=== PATIENT | female | born 1990 | race Caucasian/White ===

== ENCOUNTER 2020-02-18 15:19 | Emergency (ER) | payer MEDICAID, SELFPAY ==
[2020-02-18 15:24] VITALS: BP 116/78; PULSE 96; RESP 18; TEMP 37.2; O2SAT 98; BMI 41.3
--- NOTE | 2020-02-18 15:44 | CTR_ITS ---
PROCEDURE INFORMATION: Exam: CT Abdomen And Pelvis With Contrast Exam date and time: 02/18/2020 3:54 PM Age: 29 years old Clinical indication: Nausea; Abdominal pain; Localized; Left; Prior surgery; Surgery type: Tubal, rectal vaginal fistula, ostomy, hernia; Additional info: Abdominal pain, fever TECHNIQUE: Imaging protocol: Computed tomography of the abdomen and pelvis with intravenous contrast. Radiation optimization: All CT scans at this facility use at least one of these dose optimization techniques: automated exposure control; mA and/or kV adjustment per patient size (includes targeted exams where dose is matched to clinical indication); or iterative reconstruction. Contrast material: OMNI 300; Contrast volume: 95 ml; Contrast route: INTRAVENOUS (IV); COMPARISON: No relevant prior studies available. RADIATION DOSE METRICS: Total DLP (mGy-cm): 1616.24 FINDINGS: Liver: There is a diffuse decrease in hepatic parenchymal density, consistent with fatty infiltration. Gallbladder and bile ducts: Multiple calcified gallstones are present. There is no common bile duct dilation. The gallbladder wall appears mildly thickened although it is well distended concerning for early cholecystitis. Gallbladder wall may measure up to 5 mm in thickness. There is no pericholecystic fluid. Pancreas: Normal. No ductal dilation. Spleen: Normal. No splenomegaly. Adrenals: Normal. No mass. Kidneys and ureters: There is no evidence of hydronephrosis. There is no evidence of renal calcifications. Stomach and bowel: Moderate diverticulosis is present in the distal colon. There is no evidence of colitis/diverticulitis. There is a multiloculated midline ventral hernia containing nonobstructed loops of bowel and mesenteric fat. No bowel wall thickening. There is no evidence of intestinal perforation or obstruction. Postoperative suture line/anastomoses are noted involving several loops of bowel. Appendix: No evidence of appendicitis. The appendix is not definitively identified. However, there is no CT evidence of a right lower quadrant inflammatory process. Intraperitoneal space: No induration intraperitoneal fat within the abdomen is otherwise identified. Vasculature: Unremarkable.No abdominal aortic aneurysm. Lymph nodes: Unremarkable.No enlarged lymph nodes. Bladder: Unremarkable as visualized. Reproductive: Unremarkable as visualized. There is a small partially collapsed left ovarian cyst that measures 1.6 cm in greatest dimension. The right ovary and uterus are unremarkable. Bones/joints: Unremarkable. No acute fracture. Soft tissues: There is some mild haziness of the mesenteric fat within the right lower aspect of the ventral hernia image 59 and 60 inferior to the loops of bowel that may reflect postoperative change or mild induration of the fat due to incarceration or obstruction of the fat within this portion of the hernia. There is edema of the skin and subcutaneous fat of the mid lower abdominal wall the concerning for cellulitis versus postoperative changes including fat necrosis. No abscess or fluid collection. There is a small hernia of the abdominal wall containing fat right lower abdominal wall image 42. CT/CT abdomen pelvis w con* [id number] IMPRESSION: 1. Subtle induration of the fat within the right aspect of the multiloculated ventral hernia midline lower abdomen. This induration of the fat may reflect postoperative changes or early incarceration of the fat within the hernia. 2. There is edema of the skin and subcutaneous fat of the mid lower abdominal wall concerning for cellulitis versus postoperative changes including fat necrosis. No abscess or fluid collection. 3. The gallbladder wall appears thickened although well distended concerning for early cholecystitis. There is cholelithiasis. No duct dilatation. 4. There is diverticulosis without diverticulitis. No bowel thickening or inflammatory changes are identified. Radiation Dose CTDIVOL = (mGy): DLP = 1616.24 (mGy-cm)
[2020-02-18] MEDS: sodium chloride 0.9% 1,000 ML 999 ML IV (15:57)
[2020-02-18] MEDS: ondansetron 2 mg/ML SDV 2 mL 4 MG IVP (16:01)
[2020-02-18 16:02] VITALS: RESP 18
[2020-02-18] MEDS: morphine 4 mg/mL SDV 1 mL IVP (16:02)
[2020-02-18 16:11] LABS: Basophils % 0.3 %; Eosinophils # 0.1 10^3/uL (0.0-0.8); Hematocrit 39.4 % (37.0-47.0); Hemoglobin 11.7 g/dL (11.5-15.3); Lymphocytes # 1.8 10^3/uL (0.8-4.8); Lymphocytes % 22.8 %; Mean Corpuscular HGB Conc 29.7 g/dL (30.0-36.0); Mean Corpuscular Hemoglobin 22.5 pg (28.0-34.0); Mean Corpuscular Volume 75.8 fL (81-99); Mean Platelet Volume 9.8 fL (7.4-10.4); Monocytes # 0.4 10^3/uL (0.2-0.9); Monocytes % 4.9 %; Neutrophils # 5.56 10^3/uL (1.8-7.7); Neutrophils % 70.6 %; Nucleated Red Blood Cells % 0 %; Platelet Count 273 10^3/cmm (130-400); Red Cell Distribution Width 16.5 % (12.1-15.1); White Blood Count 7.9 10^3/uL (4.0-10.0)
--- NOTE | 2020-02-18 16:21 | W.ED.ABDPA2 ---
HPI - Abdominal Pain General: Chief Complaint: Abdominal Pain Stated Complaint: ABD PAIN Time Seen by Provider: 02/18/20 15:21 History of Present Illness: HPI narrative: This patient is a 29-year-old female presenting with abdominal pain. She came in by ambulance today because she did not have anyone else to drive her. She lives in [facility] but said the ambulance brought her here because she was told [facility] did not have any surgeons. She has a history of multiple abdominal surgeries. 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 This was treated with a muscle flap and she had an ostomy during the time of treatment. About 6 months ago the ostomy was reversed and a large ventral hernia was repaired. She has done well since then. The initial treatment of the rectovaginal fistula was in [place] and the ostomy reversal and hernia repair were done in [place]. She has recently moved here and is in the process of trying to find a new primary care provider but without much success thus far. She said her stomach was bothering her a little bit this morning. She took a nap this afternoon when she woke up she was drenched in sweat and having severe pain on the left side of her abdomen. No vomiting or diarrhea at this point. No urinary symptoms. MD elicited complaint: abdominal pain Pertinent past history: constipation and gastrointestinal bleeding Onset (ago): day(s) (Today) Pain Consistency: constant Location: LUQ and LLQ Severity: severe Quality: stabbing Radiation: none Migration to: no migration Associated Symptoms: Reports no associated symptoms; Denies chills, fever(s), nausea and vomiting Review of Systems General: Reports: 10 or more systems reviewed and unremarkable except in HPI and below Const: Reports: diaphoresis; Denies: fever(s), chills, fatigue or malaise Eyes: Denies: change in vision ENMT: Denies: odynophagia Card: Denies: chest pain or swelling of feet/ankles Resp: Denies: dyspnea, productive cough or non-productive cough GI: Denies: nausea or vomiting : Denies: flank pain or difficulty voiding Musc: Denies: neck pain or back pain Skin/Breast: Denies: rash Neuro: Denies: headache(s), numbness in extremities or weakness in extremities Eriberto/Lymph: Denies: easy bruising or easy bleeding Physical Exam Const: COMMON NORMALS: no acute distress, patient oriented x3, no limitations and alert GENERAL APPEARANCE: cooperative HENMT: HEAD & SCALP: normal to inspection FACE & SINUS: normal facial exam Eye: GENERAL EYE: appearance normal, both eyes and all related structures Neck/C-Spine: COMMON NORMALS: supple, no meningeal signs and no JVD Chest: COMMONS NORMALS: normal inspection of the chest Resp: COMMON NORMALS: normal respiratory effort, No use of accessory muscles and clear to auscultation bilaterally AUSCULTATION: clear to auscultation bilaterally Cardio: COMMON NORMALS: no JVD, regular rate, regular rhythm and No murmurs present (Cardio) RATE: regular rate RHYTHM: regular rhythm GI: COMMON NORMALS: Soft to palpation INSPECTION: Yes scar (There is a scar in the right upper quadrant consistent with an ostomy reversal. She also has a midline scar consistent with an open hernia repair.) AUSCULTATION: Yes normoactive bowel sounds PALPATION: Yes Soft to palpation and Yes Tenderness to palpation present (GI) (Left abdomen. Guarding, no rebound) Back/Pelvis: COMMON NORMALS: thoracic and lumbar spine normal to inspection Extremity: COMMON NORMALS: normal to inspection Neuro: COMMON NORMALS: patient oriented x3, moves all extremities, no focal motor deficits and no sensory deficits noted SENSORIUM/ORIENTATION: Yes alert MENINGEAL SIGNS: Yes no meningeal signs Psych: COMMON NORMALS: mental status grossly normal, cooperative and normal affect Skin: COMMON NORMALS: no rashes or lesions noted and turgor normal GENERAL SKIN EXAM: no rashes or lesions noted and turgor normal Course ED course: Patient reports feeling better. CT did not show any acute surgical issue. She had some edema related to her prior surgeries which I do not think is anything acute. She did have a involuted cyst on the left ovary. This could be the cause of her pain if she had a small ruptured hemorrhagic ovarian cyst. Otherwise her work-up is benign and she was comfortable going home. She has not been able to get a primary care physician since moving to the area and I put a case management consult in so that they may assist her with that. She understands return precautions. She did not request any pain medicine for home and none was given. Vital Signs: Vital signs: Vital Signs Temperature 98.9 F 07/13/20 15:24 Pulse Rate 91 02/18/20 17:59 Respiratory Rate 18 02/18/20 17:59 Blood Pressure 129/72 02/18/20 17:59 Pulse Oximetry 98 02/18/20 17:59 MDM - Abdominal Pain MDM Narrative: Medical decision making narrative: Abdominal pain, multiple prior abdominal surgeries. History of hernias. Fairly benign exam at this time. CT to rule out surgical emergency. Labs and urine to rule out infection. Management of pain. Lab Data: Labs: Lab Results 02/18/20 02/18/20 02/18/20 Range/Units 15:58 16:00 16:00 WBC 7.9 (4.0-10.0) 10^3/ uL RBC 5.20 (4.1-5.3) 10^6/u L Hgb 11.7 (11.5-15.3) g/dL Hct 39.4 (37.0-47.0) % MCV 75.8 L (81-99) fL MCH 22.5 L (28.0-34.0) pg MCHC 29.7 L (30.0-36.0) g/dL RDW 16.5 H (12.1-15.1) % Plt Count 273 (130-400) 10^3/c mm MPV 9.8 (7.4-10.4) fL Neut % (Auto) 70.6 % Lymph % (Auto) 22.8 % Gonzales % (Auto) 4.9 % Eos % (Auto) 1.0 % Baso % (Auto) 0.3 % Neut # (Auto) 5.56 (1.8-7.7) 10^3/u L Lymph # (Auto) 1.8 (0.8-4.8) 10^3/u L Gonzales # (Auto) 0.4 (0.2-0.9) 10^3/u L Eos # (Auto) 0.1 (0.0-0.8) 10^3/u L Baso # (Auto) 0.0 (0.0-0.1) 10^3/u L Nucleated RBC % (a uto) 0 % Nucleated RBCs # 0.0 /100WBC Sodium 138 (136-145) mmol/L Potassium 3.9 (3.5-5.1) mmol/L Chloride 103 (98-107) mmol/L Carbon Dioxide 26 (22-29) mmol/L Anion Gap 12.9 (5-19) BUN 15 (6-20) mg/dL Creatinine 0.7 (0.5-0.9) mg/dL GFR Calculation 97.6 (90-130) mL/min Glucose 82 (65-115) mg/dL Calculated Osmolal ity 281 L (285-295) mOsm/k g Lactate (0.5-2.2) mmol/L Calcium 9.2 (8.5-10.5) mg/dL Total Bilirubin 0.3 (0.15-1.2) mg/dL AST 51 H (0-32) U/L ALT 66 H (0-33) U/L Alkaline Phosphata se 85 (35-105) IU/L Total Protein 7.0 (6.6-8.7) g/dL Albumin 3.9 (3.5-5.2) g/dL Globulin 3.1 (1.3-4.6) g/dL Lipase 33 (13-60) U/L HCG, Qual (Negative) Urine Color Yellow (Yellow) Urine Appearance Clear (CLEAR) Urine pH 6 (5-7) Ur Specific Gravit y 1.020 (1.005-1.030) Urine Protein Neg (Negative) Urine Glucose (UA) Norm (Normal) Urine Ketones Negative (Negative) Urine Blood Neg (Negative) Urine Nitrate Negative (Negative) Urine Bilirubin Neg (NEGATIVE) Urine Urobilinogen Norm (Negative) mg/dL Ur Leukocyte Marya ase Negative (Negative) 02/18/20 02/18/20 Range/Units 16:00 16:00 WBC (4.0-10.0) 10^3/ uL RBC (4.1-5.3) 10^6/u L Hgb (11.5-15.3) g/dL Hct (37.0-47.0) % MCV (81-99) fL MCH (28.0-34.0) pg MCHC (30.0-36.0) g/dL RDW (12.1-15.1) % Plt Count (130-400) 10^3/c mm MPV (7.4-10.4) fL Neut % (Auto) % Lymph % (Auto) % Gonzales % (Auto) % Eos % (Auto) % Baso % (Auto) % Neut # (Auto) (1.8-7.7) 10^3/u L Lymph # (Auto) (0.8-4.8) 10^3/u L Gonzales # (Auto) (0.2-0.9) 10^3/u L Eos # (Auto) (0.0-0.8) 10^3/u L Baso # (Auto) (0.0-0.1) 10^3/u L Nucleated RBC % (a uto) % Nucleated RBCs # /100WBC Sodium (136-145) mmol/L Potassium (3.5-5.1) mmol/L Chloride (98-107) mmol/L Carbon Dioxide (22-29) mmol/L Anion Gap (5-19) BUN (6-20) mg/dL Creatinine (0.5-0.9) mg/dL GFR Calculation (90-130) mL/min Glucose (65-115) mg/dL Calculated Osmolal ity (285-295) mOsm/k g Lactate 0.8 (0.5-2.2) mmol/L Calcium (8.5-10.5) mg/dL Total Bilirubin (0.15-1.2) mg/dL AST (0-32) U/L ALT (0-33) U/L Alkaline Phosphata se (35-105) IU/L Total Protein (6.6-8.7) g/dL Albumin (3.5-5.2) g/dL Globulin (1.3-4.6) g/dL Lipase (13-60) U/L HCG, Qual Negative (Negative) Urine Color (Yellow) Urine Appearance (CLEAR) Urine pH (5-7) Ur Specific Gravit y (1.005-1.030) Urine Protein (Negative) Urine Glucose (UA) (Normal) Urine Ketones (Negative) Urine Blood (Negative) Urine Nitrate (Negative) Urine Bilirubin (NEGATIVE) Urine Urobilinogen (Negative) mg/dL Ur Leukocyte Marya ase (Negative) Discharge Plan Discharge Patient Disposition: Home, Self-Care Clinical Impression: Ovarian cyst rupture Abdominal pain Qualifiers: Abdominal location: left lower quadrant Qualified Code(s): R10.32 - Left lower quadrant pain Condition: Stable Prescriptions: No Action No Known Home Medications RF: 0 Discharge Orders: Discharge Order (Routine); Ordered 02/18/20 Ordered By: Niki Saravia Referrals: Tyson Porter Jr, MD [Primary Care Provider] - Discharge Diet: Usual diet Discharge Activity: Resume usual activity Patient Instructions: Ovarian Cyst (ED), Abdominal Pain (ED) Activity Restrictions/Additional Instructions: Rest, use ibuprofen or Tylenol for pain. Follow-up with the primary care physician. Our case finishing machine adjuster will contact you to assist with finding a new doctor. Return to the ED if new or worse symptoms. Discharge Date/Time: 02/18/20 18:00 Coding Level of Care Code ED Window Trimmer Apprentice for Chg Fwd Exam Comprehensive
[2020-02-18 16:29] LABS: Alanine Aminotransferase 66 U/L (0-33); Albumin Level 3.9 g/dL (3.5-5.2); Alkaline Phosphatase 85 IU/L (35-105); Anion Gap 12.9 (5-19); Aspartate Amino Transferase 51 U/L (0-32); Blood Urea Nitrogen 15 mg/dL (6-20); Calcium 9.2 mg/dL (8.5-10.5); Carbon Dioxide 26 mmol/L (22-29); Chloride 103 mmol/L (98-107); Globulin 3.1 g/dL (1.3-4.6); Glomerular Filtration Rate 97.6 mL/min (90-130); Glucose 82 mg/dL (65-115); Lactate (Lactic Acid level) 0.8 mmol/L (0.5-2.2); Lipase 33 U/L (13-60); Osmolality Calculated 281 mOsm/kg (285-295); Potassium 3.9 mmol/L (3.5-5.1); Sodium 138 mmol/L (136-145); Total Bilirubin 0.3 mg/dL (0.15-1.2)
[2020-02-18 16:33] LABS: Add Urine Microscopic? NO
[2020-02-18 16:33] LABS: HCG, Serum Qual Negative (Negative)
[2020-02-18] MEDS: iohexol 300 mg/mL 100 mL Btl IV (16:43)
[2020-02-18 16:45] LABS: Bilirubin Urine Neg (NEGATIVE); Blood Urine Neg (Negative); Glucose Urine UA Norm (Normal); Ketones Urine Negative (Negative); Leukocyte Esterase Urine Negative (Negative); Nitrate Urine Negative (Negative); Protein Urine Neg (Negative); Urine Appearance Clear (CLEAR); Urine Color Yellow (Yellow); Urobilinogen Urine Norm (Negative); pH Urine 6 (5-7)
[2020-02-18 17:59] VITALS: BP 129/72; PULSE 91; RESP 18; O2SAT 98
--- NOTE | 2020-02-19 10:59 | DCPLANNER ---
touring production manager had message to speak with patient about getting a primary care physician. touring production manager unable to speak with patient at this time, a voicemail was left for patient to return piano case and bench assembler phone call.
== END 2020-02-18 18:00 | disposition home or self-care (01) ==
PROVIDERS: Emergency Provider Emergency Medicine; PCP Family Medicine
DX: N83.292 Other ovarian cyst, left side (principal)
CPT/HCPCS: 12345; 36415; 74177; 80053; 81003; 83605; 83690; 84703; 85025; 96361; 96374; 96375; 99282; 99283; J2270; J2405; J7030; Q9967